=== PATIENT | male | born 1940 | race Caucasian/White ===

== ENCOUNTER 2020-12-27 07:48 | Day surgery (SDC) | payer OTHER, MEDICARE, BC ==
[~2020-12-27 07:48] MED LIST: Lactated Ringers 1,000 ML IV SCH; Midazolam 1 MG/ML 2 ML SDV ONE; Propofol 200 MG/20 ML SDV ONE
--- NOTE | 2020-12-27 09:30 | PCM.PREANE ---
Preanesthetic Assessment - Anesthesia/Transfusion/Family Hx Anesthesia History: Prior Anesthesia Without Reaction Family History of Anesthesia Reaction: No Transfusion History: No Prior Transfusion(s) - Review of Systems General: No Symptoms Pulmonary: No Symptoms Cardiovascular: No Symptoms Gastrointestinal: No Symptoms Neurological: No Symptoms Other: Reports: None - Physical Assessment NPO Status Date: 12/27/20 NPO Status Time: 00:05 Height: 5 ft 7 in Weight: 187 lb ASA Class: 2 Mental Status: Alert & Oriented x3 Airway Class: Mallampati = 2 Dentition: Reports: Normal Dentition ROM/Head Extension: Limited/Partial Lungs: Clear to Auscultation, Normal Respiratory Effort Cardiovascular: Regular Rate, Regular Rhythm - Lab Values: Laboratory Last Values SARS-CoV-2 RNA (MANUELA) NEGATIVE (NEGATIVE) 12/27/20 08:00 - Allergies Allergies/Adverse Reactions: Allergies Allergy/AdvReac Type Severity Reaction Status Date / Time calcipotriene [From Dovonex] Allergy "made rash Verified 12/21/20 14:12 worse" codeine Allergy Cannot Verified 12/21/20 14:12 Remember surgical tape Allergy Blisters Uncoded 12/21/20 14:12 - Anesthesia Plan Pre-Op Medication Ordered: None - Acknowledgements Anesthesia Type Planned: General Anesthesia Pt an Appropriate Candidate for the Planned Anesthesia: Yes Alternatives and Risks of Anesthesia Discussed w Pt/Guardian: Yes Pt/Guardian Understands and Agrees with Anesthesia Plan: Yes Additional Comments: npo htn 3 cardiac stents 1 in 1998, 1 in 2008, and 1 in 2015 no mi, cp, chf pt very active daily no sob, vazquez stopped his plavis 1 week ago lbp asthma no rx tob none etoh rare bmi 29 par no questions kicked in head by horse last jun and life flighted to [place] - had cerebral bleed - from head trauama no surgical intervention no residual from head trauma PreAnesthesia Questionnaire HEENT History: Reports: Other (See Below) Other HEENT History: wears glasses, has hearing aids but states he does not wear them Cardiovascular History: Reports: CAD, Hypertension Respiratory History: Reports: SOB, Other (See Below) Other Respiratory History: SOB at times with activity, pneumonia after surgery for fx pelvis Gastrointestinal History: Reports: None Genitourinary History: Reports: BPH, Other (See Below) Other Genitourinary History: states has been told his "kidney function is low" Musculoskeletal History: Reports: Arthritis, Back Pain, Chronic, Fracture Other Musculoskeletal History: hx fx ankle and fx pelvis Neurological History: Reports: Headaches, Chronic, Head Trauma, Other (See Below) Other Neuro History: head injury due to being kicked in the head by a horse in Jun 2020, in the hospial in [place] for 2 days Psychiatric History: Reports: None Endocrine/Metabolic History: Reports: None Hematologic History: Reports: None Immunologic History: Reports: None Oncologic (Cancer) History: Reports: None Dermatologic History: Reports: Other (See Below) Other Dermatologic History: occasional rash - Past Surgical History Head Surgeries/Procedures: Reports: None Cardiovascular Surgical History: Reports: Carotid Stents Other Cardiovascular Surgeries/Procedures: stent placed in 1998, 2nd in 2008 & 3rd in 2016 Respiratory Surgical History: Reports: None GI Surgical History: Reports: Hernia, Inguinal Male Surgical History: Reports: Other (See Below) Other Male Surgeries/Procedures: cysto Endocrine Surgical History: Reports: None Neurological Surgical History: Reports: None Musculoskeletal Surgical History: Other Musculoskeletal Surgeries/Procedures:: surgery for fx ankle and fx pelvis Dermatological Surgical History: Reports: None - SUBSTANCE USE Tobacco Use Status *Q: Never Tobacco User Recreational Drug Use History: No - HOME MEDS Home Medications: Home Meds Albuterol Sulfate [Proair Respiclick] 1 - 2 puff INH ASDIRECTED PRN 12/21/20 [History] Aspirin [Adult Aspirin Regimen] 81 mg PO DAILY 12/21/20 [History] Bacitracin [Bacitracin Oint] 1 applic TOP ASDIRECTED PRN 12/21/20 [History] Clobetasol [Clobetasol Propionate 0.05% Cream] 1 applic TOP ASDIRECTED PRN 12/21/20 [History] Clopidogrel Bisulfate [Plavix] 75 mg PO DAILY 12/21/20 [History] Finasteride 5 mg PO DAILY 12/21/20 [History] Gabapentin [Neurontin] 600 mg PO BEDTIME 12/21/20 [History] Nitroglycerin 1 tab SL ASDIRECTED PRN 12/21/20 [History] amLODIPine Besylate [Amlodipine Besylate] 10 mg PO DAILY 12/21/20 [History] - CURRENT (IN HOUSE) MEDS Current Meds: Current Medications Lactated Ringer's (Ringers, Lactated) 1,000 mls @ 125 mls/hr IV ASDIRECTED SHOLA Discontinued Medications Midazolam HCl (Midazolam 1 Mg/Ml 2 Ml Sdv) Confirm Administered Dose 2 mg .ROUTE .STK-MED ONE Stop: 12/27/20 07:23 Propofol (Propofol 200 Mg/20 Ml Sdv) Confirm Administered Dose 600 mg .ROUTE .STK-MED ONE Stop: 12/27/20 07:23
--- NOTE | 2020-12-27 10:28 | PCM.OPNOTE ---
- General Post-Op/Procedure Note Date of Surgery/Procedure: 12/27/20 Operative Procedure(s): Colonoscopy with polypectomy Findings: scant diverticulosis colon polyp dictation number: [id number] Pre Op Diagnosis: family history of colon cancer Post-Op Diagnosis: Scant diverticulosis. colon polyp Primary Surgeon: Jj Davies Pathology: colon polyp Complications: None Condition: Good
--- NOTE | 2020-12-27 10:57 | PCM.POSTAN ---
POST ANESTHESIA ASSESSMENT - MENTAL STATUS Mental Status: Alert, Oriented - VITAL SIGNS Vital Signs: Last Vital Signs Temp 98.2 F 12/27/20 10:13 Pulse 50 L 12/27/20 10:34 Resp 16 12/27/20 10:34 BP 118/40 L 12/27/20 10:34 Pulse Ox 97 12/27/20 10:34 - RESPIRATORY Respiratory Status: Respiratory Rate WNL, Airway Patent, O2 Saturation Stable - CARDIOVASCULAR CV Status: Pulse Rate WNL, Blood Pressure Stable - GASTROINTESTINAL GI Status: No Symptoms - POST OP HYDRATION Hydration Status: Adequate & Stable
--- NOTE | 2020-12-27 10:57 | PCM48HPAN ---
Post Anesthesia Note - EVALUATION WITHIN 48HRS OF ANESTHETIC Vital Signs in Normal Range: Yes Patient Participated in Evaluation: Yes Respiratory Function Stable: Yes Airway Patent: Yes Cardiovascular Function Stable: Yes Hydration Status Stable: Yes Pain Control Satisfactory: Yes Nausea and Vomiting Control Satisfactory: Yes Mental Status Recovered: Yes Vital Signs: Last Vital Signs Temp 98.2 F 12/27/20 10:13 Pulse 50 L 12/27/20 10:34 Resp 16 12/27/20 10:34 BP 118/40 L 12/27/20 10:34 Pulse Ox 97 12/27/20 10:34
--- NOTE | 2020-12-27 22:06 | OR ---
SURGEON: LEAH WORTHINGTON MD DATE OF PROCEDURE: 12/27/2020 PREOPERATIVE DIAGNOSIS: Family history of colon cancer. POSTOPERATIVE DIAGNOSES: 1. Scant diverticulosis. 2. Cecal polyp. PROCEDURES PERFORMED: 1. Colonoscopy. 2. Hot snare polypectomy. PRIMARY SURGEON: Leah Worthington MD ANESTHESIA: General with Anesthesiology. EXTENT OF THE COLONOSCOPY: To the cecum. WITHDRAWAL TIME: 7 minutes. BOWEL PREP: Very good. LIMITATIONS: None. REASON FOR PROCEDURE: The patient is a pleasant 80-year-old gentleman. His last colonoscopy was in 2006. He denies any blood in his stool. He says his mother did have colon cancer. DESCRIPTION OF PROCEDURE: A detailed physical exam was performed. The major risks and benefits associated with the procedure were explained to the patient in detail. The patient verbalized understanding of the same. The patient was then connected to appropriate monitoring device and IV started. EKG, pulse, pulse oximetry, blood pressure, and capnography were monitored throughout the procedure. Continuous oxygen and sedation were provided by the anesthesiologist. The patient was placed in left lateral decubitus position and sedation began. After adequate sedation was achieved, a digital rectal exam was performed. No rectal masses or polyps were felt. Now, a well-lubricated Olympus colonoscope was entered in the rectum and advanced under direct visualization to the level of the cecum. Cecum was identified by both visual and anatomic landmarks. Photographs were taken of the cecal cap. The patient did have a little bit of light liquid stool which was suctioned and irrigated out for a very good look at the mucosa. The patient did have a polyp in the cecum. This was removed with hot snare polypectomy. Mucosal defect was then closed with a Resolution clip. The polyp was slightly too large to suction out, so was again cut with a loop and now it was able to be suctioned out. Now, the scope was slowly withdrawn in somewhat circular fashion looking at the color, texture, anatomy, and integrity of the mucosa from the cecum to the anal canal. He did have some liquid stool which was suctioned and irrigated out for good look at the mucosa. No other polyps were seen. The patient had some scant diverticulosis throughout the sigmoid colon. Scope was retroflexed in the rectum. Scope was completely removed and the procedure was terminated. ENDOSCOPIC DIAGNOSES: 1. Polyp in the cecum. 2. Scant diverticulosis. RECOMMENDATIONS: Followup colonoscopy will depend on pathology, but most likely will need another one in five years. He will need one sooner if he develops signs and symptoms such as change in bowel habits or blood in his stool. SOLANGE MARADIAGA /[id number]
== END 2020-12-27 11:12 | disposition home or self-care (01) ==
LOC: MW.SDS 07:48
PROVIDERS: ATTEND Surgery
DX: Z12.11 Encounter for screening for malignant neoplasm of colon (principal); D12.0 Benign neoplasm of cecum; K57.30 Diverticulosis of large intestine without perforation or abscess without bleeding; I25.10 Atherosclerotic heart disease of native coronary artery without angina pectoris; I10 Essential (primary) hypertension; E78.00 Pure hypercholesterolemia, unspecified; Z01.812 Encounter for preprocedural laboratory examination; Z20.822 Contact with and (suspected) exposure to COVID-19; Z80.0 Family history of malignant neoplasm of digestive organs; Z88.5 Allergy status to narcotic agent; Z88.8 Allergy status to other drugs, medicaments and biological substances; Z79.899 Other long term (current) drug therapy; Z98.890 Other specified postprocedural states
CPT/HCPCS: 45385; 87635; J2250; J2704; J7120; 00812; U0002